=== PATIENT | male | born 1980 | race Caucasian/White ===

== ENCOUNTER 2020-10-31 11:53 | Emergency (ER) | payer OTHER, SELFPAY ==
[2020-10-31 12:06] VITALS: BP 145/85; PULSE 86; RESP 16; TEMP 37.2; O2SAT 99
[2020-10-31 12:24] VITALS: BP 145/85; PULSE 86; RESP 16; TEMP 37.2; O2SAT 99
--- NOTE | 2020-10-31 13:02 | ED.WOUNDLAC ---
HPI - Wound/Laceration General Chief Complaint: Wound/Laceration Stated Complaint: Laceration to left finger Source: patient Mode of arrival: ambulatory Limitations: no limitations History of Present Illness HPI narrative: Patient is a 40-year-old male who presents with a laceration to left index finger from a saw while remodeling a bathroom. Bleeding controlled at this time. Patient has full flexion extension of finger. He denies taking any [id number] medications for pain prior to arrival. Related Data Home Medications Medication Instructions Recorded Confirmed losartan-hydrochlorothiazide 100 tablet PO DAILY 10/31/20 10/31/20 meloxicam 15 mg PO DAILY 10/31/20 10/31/20 omeprazole 20 mg PO DAILY 10/31/20 10/31/20 sertraline 100 mg PO DAILY 10/31/20 10/31/20 Allergies Allergy/AdvReac Type Severity Reaction Status Date / Time codeine AdvReac Intermediate Other Verified 10/31/20 12:24 Review of Systems Review of Systems: Narrative: CONSTITUTIONAL: Denies fever, chills, or sweats. EYES: Denies visual changes, redness, or discharge. ENT: Denies rhinorrhea, congestion, sore throat, or otalgia. CARDIOVASCULAR: Denies chest pain, palpitations, or edema. RESPIRATORY: Denies cough or dyspnea. GASTROINTESTINAL: Denies abdominal pain, nausea, vomiting, or diarrhea. GENITOURINARY: Denies dysuria or hematuria. SKIN: Laceration left index finger MUSCULOSKELETAL: Denies back pain, joint pain, or myalgia. NEUROLOGIC: Denies headache, numbness, dizziness, or weakness. PSYCHIATRIC: Denies anxiety or depression. [facility] Past Medical History Medical History Anxiety Degenerative disc disease Seasonal allergies Surgical History Surgical History H/O shoulder surgery Family History Family History Other No significant family history Social History Social History Smoking status: Never smoker Alcohol intake: never Substance use: never Living arrangements: with family Gender identity (if verbalized by the patient): Male Exam Narrative: Exam Narrative: GENERAL: Well-appearing, well-nourished, and in no acute distress. HEAD: Normocephalic, atraumatic. EYES: No redness or drainage. ENT: Mucous membranes pink and moist. CHEST: No respiratory distress. HEART: Regular rate and rhythm. EXTREMITIES: Normal range of motion. No edema. SKIN: 2 lacerations to left index finger. 1 irregular flap laceration to left index finger. Second small crescent laceration. Distal sensation and intact, full flexion and extension, good capillary refill NEURO: No focal deficits. Alert and oriented x3. Gait steady. PSYCH: Normal affect. No signs of depression or anxiety. Course Vital Signs Vital signs: Vital Signs Temperature 37.2 C 10/31/20 12:06 Pulse Rate 86 10/31/20 12:06 Respiratory Rate 16 10/31/20 12:06 Blood Pressure 145/85 H 10/31/20 12:06 Pulse Oximetry 99 10/31/20 12:06 Temperature 37.2 C 10/31/20 12:24 Pulse Rate 86 10/31/20 12:24 Respiratory Rate 16 10/31/20 12:24 Blood Pressure 145/85 H 10/31/20 12:24 Pulse Oximetry 99 10/31/20 12:24 Reviewed. Patient has been instructed to follow-up with his PCP regarding his blood pressure. Procedures Laceration Laceration 1: Date: 10/31/20 Time: 13:10 Site: hand (left index finger) Side (If applicable): left Size (cm): 1 Description: flap and irregular Depth: simple, single layer Amount of anesthesia used (mL): 4 (block) Pre-repair: irrigated ====== Skin Level ====== Skin layer closed with: nylon Size (cm): 5-0 Number of sutures: 3 ====== Subcutaneous Layer ====== ====== Muscle Layer ====== ====== Tendon Layer
== END 2020-10-31 13:02 | disposition home or self-care (01) ==
PROVIDERS: Emergency Provider Nurse Practitioner
DX: S61.211A Laceration without foreign body of left index finger without damage to nail, initial encounter (principal); W27.0XXA Contact with workbench tool, initial encounter; F41.9 Anxiety disorder, unspecified
CPT/HCPCS: 12002; 99213; G0463